=== PATIENT | female | born 1945 ===

== ENCOUNTER → 2023-07-28 | Outpatient (CLI) | payer OTHER ==
[2023-07-28 14:29] LABS: Basophils # (auto) 0.1 10 ^3/uL (0-0.2); Mean Corpuscular Hemoglobin 25.8 pg (28.0-32.0); Mean Corpuscular Hgb Conc. 30.9 g/dL (32.0-36.0); Monocytes # (auto) 0.8 10 ^3/uL (0-1.3); Nucleated Red Blood Cells % 0.1 %
[2023-07-28 14:31] LABS: Basophils % (auto) 0.3 % (0.0-2.0); Eosinophils % (auto) 5.8 % (0.0-7.0); Hematocrit 35.1 % (36.0-46.0); Hemoglobin 10.9 g/dL (12.2-16.2); Lymphocytes # (auto) 1.7 10 ^3/uL (0.4-5.4); Mean Corpuscular Volume 83.4 fL (80.0-100.0); Neutrophils # (auto) 13.3 10 ^3/uL (1.6-8.6); Neutrophils % (auto) 78.9 % (37.0-80.0); Red Blood Cells 4.21 10^6/uL (4.0-5.20); Red Cell Distribution Width 16.6 % (11.8-14.3); White Blood Cell 16.9 10^3/uL (4.4-10.8)
[2023-07-28 14:54] LABS: Alkaline Phosphatase 133 U/L (46-116); Anion Gap 8 (5-15); Aspartate Aminotransferase 17 U/L (13-40); BUN/Creatinine Ratio 12.9 (10.0-20.0); Blood Urea Nitrogen 9 mg/dL (9-23); Calcium 9.2 mg/dL (8.5-10.1); Carbon Dioxide 27 mmol/L (20-30); Chloride 106 mmol/L (98-107); Creatine Kinase IFCC 30 U/L (34-145); Glucose 108 mg/dL (74-106); LDL Cholesterol 36 mg/dL (< 100); Potassium 3.6 mmol/L (3.5-5.1); Sodium 141 mmol/L (136-145); Triglycerides 104 mg/dL (< 150)
[2023-07-28 14:55] LABS: Bilirubin, Total 0.4 mg/dL (0.2-1.0); Cholesterol 101 mg/dL (< 200); HDL Cholesterol 46 mg/dL (40-59); Total Protein 7.4 g/dL (5.7-8.2)
[2023-07-28 14:59] LABS: Carcinoembryonic Antigen 2.67 ng/mL (<=5.0); Folate (Folic Acid) 11.27 ng/mL (>5.38)
[2023-07-28 15:00] LABS: Alanine Aminotransferase < 9 U/L (7-40); Ferritin 71.2 ng/mL (10-291)
[2023-07-28 15:42] LABS: % Iron Saturation 9.4 % (15-50)
[2023-07-28 16:00] LABS: Thyroid Stimulating Hormone 1.71 uIU/mL (0.55-4.78)
== END | disposition home or self-care (01) ==
LOC: LAB 13:54
PROVIDERS: ATTEND Internal Medicine
DX: Z00.01 Encounter for general adult medical examination with abnormal findings (principal); E78.5 Hyperlipidemia, unspecified; E55.9 Vitamin D deficiency, unspecified; K30 Functional dyspepsia; R64 Cachexia
CPT/HCPCS: 36415; 80053; 80061; 82306; 82378; 82550; 82607; 82728; 82746; 83540; 83550; 83615; 84436; 84443; 85025